=== PATIENT | male | born 1975 | race Caucasian/White ===

== ENCOUNTER 2023-02-05 19:27 | Emergency (ER) | payer BC ==
[~2023-02-05] VITALS: Ht 172.7 cm; Wt 83.9 kg
[2023-02-05 20:02] VITALS: BP 183/118; PULSE 113; RESP 20; TEMP 98; O2SAT 98
--- NOTE | 2023-02-05 20:15 | NUR ---
PT WENT BACK TO LOBBY
[2023-02-05 21:20] LABS: BASOPHILS % (AUTO) 0.6 % (0.0-2.0); EOSINOPHILS # (AUTO) 0.2 K/uL (0-0.4); EOSINOPHILS % (AUTO) 1.9 % (0.0-4.0); LYMPHOCYTES # (AUTO) 1.5 K/uL (2.0-11.5); LYMPHOCYTES % (AUTO) 18.3 % (20.5-51.1); MEAN CORPUSCULAR HEMOGLOBIN 30 pg (27-31); MEAN CORPUSCULAR HGB CONC 35 g/dL (33-37); MEAN CORPUSCULAR VOLUME 84.8 fL (80-94); MONOCYTES # (AUTO) 1.1 K/uL (0.8-1.0); MONOCYTES % (AUTO) 13.6 % (1.7-9.3); NEUTROPHILS # (AUTO) 5.4 K/uL (1.8-7.7); NEUTROPHILS % (AUTO) 65.6 % (42.2-75.2); PLATELET COUNT (AUTO) 250 K/uL (140-450); RED BLOOD CELL COUNT(AUTO) 5.07 MIL/uL (4.20-6.10); RED CELL DISTRIBUTION WIDTH 13.1 % (11.6-13.7); WHITE BLOOD COUNT (AUTO) 8.3 K/uL (4.8-10.8)
[2023-02-05 21:54] LABS: ALBUMIN 3.6 g/dL (3.4-5.0); ANION GAP 10.9 (8-16); CARBON DIOXIDE 31.2 mmol/L (21-32); POTASSIUM 4.1 mmol/L (3.5-5.1); TOTAL BILIRUBIN 1.1 mg/dL (0.0-1.0)
--- NOTE | 2023-02-05 22:55 | NUR ---
TO BED AMBULATORY
--- NOTE | 2023-02-05 23:00 | NUR ---
47yo male with cc of diarrhea for 1 week. reports he is taking care of his mother who was recently treated for diarrhea. pt denies abd pain,vomiting,nausea, dizzines. denies allergy A/ox4, not in distress. on monitor. call light within reach, pt instructed on how to use call light. pt returned demonstration. all needs met at this time. bed locked in lowest position. side rails x2 for safety
--- NOTE | 2023-02-06 01:25 | NUR ---
ermd at bedside
--- NOTE | 2023-02-06 01:46 | NUR ---
xray at bedside
--- NOTE | 2023-02-06 01:49 | NUR ---
pt resting on bed. A/ox4, not in distress. on monitor. call light within reach, pt instructed on how to use call light. pt returned demonstration. all needs met at this time. bed locked in lowest position. side rails x2 for safety
--- NOTE | 2023-02-06 02:13 | NUR ---
Pt went to the rest room
[2023-02-06] MEDS ORDERED: BEN10 PO (02:14)
[2023-02-06] MEDS ORDERED: LACT1CAP63 PO (02:14)
[2023-02-06 02:30] VITALS: BP 150/98; PULSE 98; RESP 20; TEMP 98; O2SAT 94
--- NOTE | 2023-02-06 02:38 | NUR ---
Patient discharged with v/s stable. Written and verbal after care instructions given and explained. Patient alert, oriented and verbalized understanding of instructions. Ambulatory with steady gait. All questions addressed prior to discharge. ID band removed. Patient advised to follow up with PMD. Rx of benntyl and probiotic given. Patient educated on indication of medication including possible reaction and side effects. Opportunity to ask questions provided and answered.
== END 2023-02-06 02:38 | disposition home or self-care (01) ==
LOC: MED 19:27
DX: R19.7 Diarrhea, unspecified (principal); Z79.899 Other long term (current) drug therapy
CPT/HCPCS: 36415; 71045; 80053; 82272; 83690; 85025; 87045; 87177; 87427; 89055; 99285; Q0092